=== PATIENT | male | born 1965 | race African-American/Black ===

== ENCOUNTER 2024-08-13 18:15 | Emergency (ER) | payer SELFPAY ==
[~2024-08-13] VITALS: Ht 172.7 cm; Wt 76.2 kg
[2024-08-13 18:18] VITALS: BP 134/88; TEMP 98.2
[2024-08-13] MEDS ORDERED: IBUPROFEN 600 MG TABLET ONE (18:26)
[2024-08-13] MEDS: IBUPROFEN 600 MG TABLET PO ONE (18:29)
[2024-08-13 18:34] VITALS: O2SAT 99
== END 2024-08-13 18:35 | disposition home or self-care (01) ==
LOC: ER 18:24
DX: G89.29 Other chronic pain (principal); M79.604 Pain in right leg; M79.605 Pain in left leg; Z59.00 Homelessness unspecified